=== PATIENT | female | born 1995 | race American Indian/Alaskan Native ===

== ENCOUNTER 2019-05-14 09:19 | Emergency (ER) | payer SELFPAY ==
[2019-05-14] MEDS ORDERED: ALBUTEROL 2.5 MG/3 ML NEBU IH ONE ×2 (09:38→11:49)
[2019-05-14] MEDS ORDERED: dexAMETHasone 4 MG/ML VIAL IM ONE (09:38)
[2019-05-14] MEDS ORDERED: IPRATROPIUM 0.02% NEBU 2.5 ML IH ONE ×2 (09:38→11:49)
--- NOTE | 2019-05-14 09:38 | Event Note ---
ED Screening Note ED Screening Note: presents with chest tightness and SOB began last night +cough no fever no sick contacts PMHx asthma, albuterol inhaler doesn't have her inhaler no allergies to meds non smoker This initial assessment/diagnostic orders/clinical plan/treatment(s) is/are subject to change based on patients health status, clinical progression and re- assessment by fellow clinical providers in the ED. Further treatment and workup at subsequent clinical providers discretion. Patient/guardian urged not to elope from the ED as their condition may be serious if not clinically assessed and managed. Initial orders include: neb tx and steroids
[2019-05-14] MEDS ORDERED: MAGNESIUM SULFATE 2 GM/50 ML BAG IV ONE (10:06)
[2019-05-14] MEDS ORDERED: SODIUM CHLORIDE 0.9% 1000 ML 1,000 ML IV ONE (10:06)
--- NOTE | 2019-05-14 10:13 | Emergency Department Report ---
ED Shortness of Breath HPI - General Chief Complaint: Dyspnea/Respdistress Stated Complaint: CHEST PAIN Time Seen by Provider: 05/14/19 09:35 Source: patient Mode of arrival: Ambulatory Limitations: No Limitations - History of Present Illness Initial Comments: 24-year-old -[place] female with a past medical history of asthma presents to the emergency room for shortness of breath and chest tightness times last night. Patient states that she's been out of her albuterol medication for a while since she has not had any recent asthma attacks. Patient reports chills and fever. Patient reports her last menstrual period was 05/08/2019. MD Complaint: shortness of breath, "asthma attack" -: Last night Improves With: nothing Worsens With: nothing Known History Of: asthma Associated Symptoms: fever, cough Treatments Prior to Arrival: none - Related Data Previous Rx's Medication Instructions Recorded Last Taken Type ALBUTEROL Inhaler (OR & NICU) 2 puff IH QID PRN #8.5 gram 05/14/19 Unknown Rx [ProAir HFA Inhaler] Azithromycin [Zithromax Z-FELIX] 250 mg PO QDAY #6 tablet 05/14/19 Unknown Rx Allergies Allergy/AdvReac Type Severity Reaction Status Date / Time No Known Allergies Allergy Verified 05/14/19 09:20 ED Review of Systems ROS: Stated complaint: CHEST PAIN Other details as noted in HPI Comment: All other systems reviewed and negative Respiratory: cough, shortness of breath, wheezing ED Past Medical Hx - Past Medical History Previous Medical History?: No - Surgical History Past Surgical History?: No - Social History Smoking Status: Never Smoker Substance Use Type: None - Medications Home Medications: Home Medications Medication Instructions Recorded Confirmed Last Taken Type ALBUTEROL Inhaler (OR & NICU) 2 puff IH QID PRN #8.5 gram 05/14/19 Unknown Rx [ProAir HFA Inhaler] Azithromycin [Zithromax Z-FELIX] 250 mg PO QDAY #6 tablet 05/14/19 Unknown Rx ED Physical Exam - General Limitations: No Limitations General appearance: alert - Head Head exam: Present: atraumatic, normocephalic - Eye Eye exam: Present: normal appearance - ENT ENT exam: Present: mucous membranes moist - Respiratory Respiratory exam: Present: wheezes, rhonchi, accessory muscle use, prolonged expiratory - Cardiovascular Cardiovascular Exam: Present: tachycardia - GI/Abdominal GI/Abdominal exam: Present: soft, normal bowel sounds - Extremities Exam Extremities exam: Present: normal inspection - Back Exam Back exam: Present: normal inspection - Neurological Exam Neurological exam: Present: alert, oriented X3 - Psychiatric Psychiatric exam: Present: normal affect, normal mood - Skin Skin exam: Present: warm, dry, intact, normal color. Absent: rash ED Course Vital Signs 05/14/19 05/14/19 09:36 10:29 Temperature 98.8 F Pulse Rate 101 H Pulse Rate [ 108 H Anterior Bilateral Throughout] Respiratory 16 Rate Respiratory 20 Rate [Anterior Bilateral Throughout] Blood Pressure 134/69 O2 Sat by Pulse 96 Oximetry ED Medical Decision Making - Radiology Data Radiology results: report reviewed Patient: ANGEL PERALTA MR#: [id number] : 1995 Acct:[id number] Age/Sex: 24 / F ADM Date: 05/14/19 Loc: ED Attending Dr: Ordering Physician: REID BELLA Date of Service: 05/14/19 Procedure(s): XR chest routine 2V Accession Number(s): [id number] cc: REID BELLA Fluoro Time In Minutes: CHEST 2 VIEWS INDICATION: sob. COMPARISON: None. FINDINGS: Support devices: None. Heart: Within normal limits. Pulmonary vasculature: Normal. Lungs/pleura: Irregular focal consolidation of the right upper lobe. The rest of the lungs are clear. No pleural effusion. No pneumothorax. Additional findings: None. IMPRESSION: Acute right upper lobe pneumonia. Signer Name: Nicol Brooks MD Signed: 05/14/2019 11:34 AM Workstation Name: [id number] Transcribed By: REF Dictated By: NICOL BROOKS MD Electronically Authenticated By: NICOL BROOKS MD Signed Date/Time: 05/14/19 1134 DD/ 1131 TD/TT: - Medical Decision Making 24-year-old -[place] female with a past medical history of asthma pres ents to the emergency room for shortness of breath and chest tightness times last night. Patient states that she's been out of her albuterol medication for a while since she has not had any recent asthma attacks. Patient reports chills and fever. Patient reports her last menstrual period was 05/08/2019. Orders have been placed for dual neb, dexamethasone 8 mg IM, magnesium 2 g IV, normal saline 1000 mL. Critical care attestation.: If time is entered above; I have spent that time in minutes in the direct care of this critically ill patient, excluding procedure time. ED Disposition Clinical Impression: Pneumonia Disposition: DC- TO HOME OR SELFCARE Is pt being admited?: No Does the pt Need Aspirin: No Condition: Stable Instructions: Bacterial Pneumonia (ED) Prescriptions: ALBUTEROL Inhaler (OR & NICU) [ProAir HFA Inhaler] 2 puff IH QID PRN #8.5 gram PRN Reason: Shortness Of Breath Azithromycin [Zithromax Z-FELIX] 250 mg PO QDAY #6 tablet Referrals: PRIMARY CARE, [Primary Care Provider] - 3-5 Days [facility] [Outside] - 3-5 Days [facility] [Outside] - 3-5 Days Forms: Work/School Release Form(ED)
[2019-05-14] MEDS ORDERED: dexAMETHasone 4 MG/ML VIAL IV ONE (10:49)
--- NOTE | 2019-05-14 11:38 | XRay Report ---
CHEST 2 VIEWS INDICATION: sob. COMPARISON: None. FINDINGS: Support devices: None. Heart: Within normal limits. Pulmonary vasculature: Normal. Lungs/pleura: Irregular focal consolidation of the right upper lobe. The rest of the lungs are clear. No pleural effusion. No pneumothorax. Additional findings: None. IMPRESSION: Acute right upper lobe pneumonia. Signer Name: Jalen Sorensen MD Signed: 05/14/2019 11:34 AM Workstation Name: [id number]
[2019-05-14] MEDS ORDERED: cefTRIAXone/NS 1 GM/50 ML 1 GM/50 ML BAG IV ONE (12:28)
[2019-05-14 13:24] VITALS: BP 127/64
== END 2019-05-14 13:21 | disposition home or self-care (01) ==
LOC: ED 09:19
DX: J18.9 Pneumonia, unspecified organism (principal)
CPT/HCPCS: 71046; 94640; 96365; 96367; 96375; 99283; J0696; J1100; J3475; J7030; 94644

== ENCOUNTER 2019-05-14 21:30 | Emergency (ER) | payer SELFPAY ==
[2019-05-14] MEDS ORDERED: IPRATROPIUM 0.02% NEBU 2.5 ML IH ONE (22:32)
[2019-05-14] MEDS ORDERED: ALBUTEROL 2.5 MG/3 ML NEBU IH ONE (22:32)
[2019-05-14] MEDS ORDERED: dexAMETHasone 20 MG/5 ML VIAL IM ONE (22:32)
--- NOTE | 2019-05-14 22:32 | Emergency Department Report ---
Blank Doc - Documentation Documentation: 24-year-old female that presents with wheezing and SOB. This initial assessment/diagnostic orders/clinical plan/treatment(s) is/are subject to change based on patient's health status, clinical progression and re- assessment by fellow clinical providers in the ED. Further treatment and workup at subsequent clinical providers discretion. Patient/guardians urged not to elope from the ED as their condition may be serious if not clinically assessed and managed. Initial orders include: 1- Patient sent to [facility] for further evaluation and treatment 2- breathing treatment/steroids
[2019-05-14] MEDS ORDERED: LIDOCAINE-MPF (1%) 10 MG/1 ML VIAL 5 ML INFILTRATI ONE (23:02)
[2019-05-14] MEDS ORDERED: IBUPROFEN 600 MG TAB PO ONE (23:02)
--- NOTE | 2019-05-14 23:56 | Emergency Department Report ---
- General Chief Complaint: Dyspnea/Respdistress Stated Complaint: FLU SX/DAMIEN Time Seen by Provider: 05/14/19 22:30 Source: patient Mode of arrival: Ambulatory Limitations: No Limitations - History of Present Illness Initial Comments: Patient is a 24-year-old -[place] female with no past medical history who presented to the ED with persistent worsening shortness of breath, dry cough, wheezing with nasal and sinus congestion for the last 3 days. Patient states that she was initially evaluated this same over 12 hours ago and diagnosed with pneumonia and was discharged home on albuterol and azithromycin, the medications which she purchased and started taking the antibiotic. Patient states that in the last 2 hours prior to arrival to the ED for shortness of breath got worse with persistent cough and chest wall pain. Patient denies fever, chills, sore throat, dizziness, syncope, headache, abdominal pain, dysuria, urinary frequency and urgency or change in vision and syncope. MD Complaint: cough, rhinorrhea, nasal congestion, sinus pain -: Sudden, days(s) (3) Severity: moderate Severity scale (0 -10): 6 Quality: aching Consistency: constant Improves With: nothing Worsens With: nothing Context: sick contacts Associated Symptoms: denies other symptoms, myalgias, headache, rhinorrhea, nasal congestion, cough, shortness of breath, ear pain. denies: fever, chills, diaphoresis, sore throat, stiff neck, chest pain, abdominal pain, nausea, vomiting, diarrhea, dysuria, rash, confusion, right sweats, epistaxis, hoarseness Treatments Prior to Arrival: antibiotics - Related Data Previous Rx's Medication Instructions Recorded Last Taken Type ALBUTEROL Inhaler (OR & NICU) 2 puff IH QID PRN #8.5 gram 05/14/19 Unknown Rx [ProAir HFA Inhaler] Azithromycin [Zithromax Z-FELIX] 250 mg PO QDAY #6 tablet 05/14/19 Unknown Rx Amoxicillin/Potassium Clav 1 each PO Q12H #20 tablet 05/15/19 Unknown Rx [Augmentin 875-125 Tablet] Benzonatate [Tessalon Perles] 100 mg PO Q8HR #30 capsule 05/15/19 Unknown Rx Ibuprofen [Motrin] 600 mg PO Q8H PRN #20 tablet 05/15/19 Unknown Rx methylPREDNISolone [Medrol 4MG 4 mg PO DAILY #21 tab.ds.pk 05/15/19 Unknown Rx DOSEPAK (21 tabs)] Allergies Allergy/AdvReac Type Severity Reaction Status Date / Time No Known Allergies Allergy Verified 05/14/19 09:20 ED Review of Systems ROS: Stated complaint: FLU SX/DAMIEN Other details as noted in HPI Constitutional: denies: chills, fever Eyes: denies: eye pain, eye discharge, vision change ENT: congestion. denies: ear pain, throat pain Respiratory: cough, shortness of breath, wheezing Cardiovascular: denies: chest pain, palpitations, dyspnea on exertion, syncope, paroxysmal nocturnal dyspnea Endocrine: no symptoms reported. denies: excessive sweating, flushing, intolerance to cold, increased hunger, increased thirst, unexplained weight loss Gastrointestinal: denies: abdominal pain, nausea, diarrhea Genitourinary: denies: urgency, dysuria, discharge Musculoskeletal: denies: back pain, joint swelling, arthralgia Skin: denies: rash, lesions Neurological: denies: headache, weakness, paresthesias Psychiatric: denies: anxiety, depression Hematological/Lymphatic: denies: easy bleeding, easy bruising ED Past Medical Hx - Past Medical History Hx Asthma: Yes - Surgical History Additional Surgical History: Tonsilectomy - Social History Smoking Status: Never Smoker Substance Use Type: None - Medications Home Medications: Home Medications Medication Instructions Recorded Confirmed Last Taken Type ALBUTEROL Inhaler (OR & NICU) 2 puff IH QID PRN #8.5 gram 05/14/19 Unknown Rx [ProAir HFA Inhaler] Azithromycin [Zithromax Z-FELIX] 250 mg PO QDAY #6 tablet 05/14/19 Unknown Rx Amoxicillin/Potassium Clav 1 each PO Q12H #20 tablet 05/15/19 Unknown Rx [Augmentin 875-125 Tablet] Benzonatate [Tessalon Perles] 100 mg PO Q8HR #30 capsule 05/15/19 Unknown Rx Ibuprofen [Motrin] 600 mg PO Q8H PRN #20 tablet 05/15/19 Unknown Rx methylPREDNISolone [Medrol 4MG 4 mg PO DAILY #21 tab.ds.pk 05/15/19 Unknown Rx DOSEPAK (21 tabs)] ED Physical Exam - General Limitations: No Limitations General appearance: alert, in no apparent distress - Head Head exam: Present: atraumatic, normocephalic, normal inspection - Eye Eye exam: Present: normal appearance, PERRL, EOMI Pupils: Present: normal accommodation - ENT ENT exam: Present: normal orophraynx, mucous membranes moist, TM's normal bilaterally, normal external ear exam, other (grossly congested nasal passages) - Neck Neck exam: Present: normal inspection, full ROM - Respiratory Respiratory exam: Present: normal lung sounds bilaterally, wheezes (diffuse coarse wheezes throughout). Absent: respiratory distress, rales, rhonchi, chest wall tenderness, accessory muscle use, decreased breath sounds, prolonged expiratory - Cardiovascular Cardiovascular Exam: Present: normal rhythm, tachycardia, normal heart sounds. Absent: systolic murmur, diastolic murmur, rubs, gallop - GI/Abdominal GI/Abdominal exam: Present: soft, normal bowel sounds. Absent: distended, tenderness, guarding, hyperactive bowel sounds, hypoactive bowel sounds, organomegaly - Extremities Exam Extremities exam: Present: normal inspection, full ROM, normal capillary refill - Back Exam Back exam: Present: normal inspection, full ROM. Absent: tenderness, CVA tenderness (R), CVA tenderness (L), muscle spasm, paraspinal tenderness, vertebral tenderness - Neurological Exam Neurological exam: Present: alert, oriented X3, CN II-XII intact, normal gait, reflexes normal - Psychiatric Psychiatric exam: Present: normal affect, normal mood - Skin Skin exam: Present: warm, dry, intact, normal color. Absent: rash ED Course Vital Signs 05/14/19 21:46 Temperature 98.1 F Pulse Rate 101 H Respiratory 20 Rate Blood Pressure 115/72 O2 Sat by Pulse 94 Oximetry - Reevaluation(s) Reevaluation #1: 05/15/19 01:26 This is a 24-year-old female who presented to the ED with worsening shortness of breath, dry cough for the last 2 hours. Patient was diagnosed initially with pneumonia after presenting to this ED over 12 hours ago. Patient states that she was able to take the initial oral antibiotic azithromycin and has been using albuterol inhaler with no relief. Given the ED, patient is alert and oriented 3 and is not in distress. Patient received DuoNeb treatment in the ED, Decadron 10 mg intramuscular injection and was also given Rocephin 1 g intramuscular injection times one. On reevaluation, patient's wheezing significantly improved, and patient will discharged home additionally with a Medrol dose pack, Tessalon Perles and the antibiotic was changed to Augmentin 875-125 mg every 12 hours. Patient is advised to return to the ED immediately if symptoms get worse, otherwise follow-up with her primary care physician and 7-10 days for reevaluation. ED Medical Decision Making - Medical Decision Making This is a 24-year-old female who presented to the ED with worsening shortness of breath, dry cough for the last 2 hours. Patient was diagnosed initially with pneumonia after presenting to this ED over 12 hours ago. Patient states that she was able to take the initial oral antibiotic azithromycin and has been using albuterol inhaler with no relief. Given the ED, patient is alert and oriented 3 and is not in distress. Patient received DuoNeb treatment in the ED, Decadron 10 mg intramuscular injection and was also given Rocephin 1 g intramuscular injection times one. Chest x-ray performed about 12 hours ago showed right upper lobe pneumonia. On reevaluation, patient's wheezing significantly improved, and patient will discharged home additionally with a Medrol dose pack, Tessalon Perles and the antibiotic was changed to Augmentin 875-125 mg every 12 hours. Patient is advised to return to the ED immediately if symptoms get worse, otherwise follow-up with her primary care physician and 7-10 days for reevaluation - Differential Diagnosis pneumonia; bronchitis, URI Critical care attestation.: If time is entered above; I have spent that time in minutes in the direct care of this critically ill patient, excluding procedure time. ED Disposition Clinical Impression: Acute upper respiratory infection Right upper lobe pneumonia Qualifiers: Pneumonia type: due to unspecified organism Qualified Code(s): J18.1 - Lobar pneumonia, unspecified organism Disposition: DC- TO HOME OR SELFCARE Is pt being admited?: No Does the pt Need Aspirin: No Condition: Stable Instructions: Bacterial Pneumonia (ED), Community-acquired Pneumonia (ED) Additional Instructions: Continue taking her previously prescribed antibiotics. In addition to the previously prescribed medications, new set of medications have been added to your current medications you have at home. Take these medications to completion, follow-up with [facility] clinic in 7-10 days for reevaluation. Return to the ED immediately if symptoms get worse. Prescriptions: Amoxicillin/Potassium Clav [Augmentin 875-125 Tablet] 1 each PO Q12H #20 tablet methylPREDNISolone [Medrol 4MG DOSEPAK (21 tabs)] 4 mg PO DAILY #21 tab.ds.pk Ibuprofen [Motrin] 600 mg PO Q8H PRN #20 tablet PRN Reason: Pain Benzonatate [Tessalon Perles] 100 mg PO Q8HR #30 capsule Referrals: PRIMARY CARE,MD [Primary Care Provider] - 3-5 Days Forms: Work/School Release Form(ED) Time of Disposition: 00:00 Print Language: ROMANSH
[2019-05-15 00:15] VITALS: BP 148/67
== END 2019-05-15 00:14 | disposition home or self-care (01) ==
LOC: ED 21:30
DX: J18.1 Lobar pneumonia, unspecified organism (principal); J06.9 Acute upper respiratory infection, unspecified; J45.909 Unspecified asthma, uncomplicated; Z90.89 Acquired absence of other organs; Z79.899 Other long term (current) drug therapy
CPT/HCPCS: 94640; 96372; 99283; J0696; J1100

== ENCOUNTER 2019-05-15 12:57 | Emergency (ER) | payer SELFPAY ==
[2019-05-15 13:06] VITALS: BP 122/67
--- NOTE | 2019-05-15 13:14 | Emergency Department Report ---
Chief Complaint: Upper Respiratory Infection Stated Complaint: RESPIRATORY ISSUES Time Seen by Provider: 05/15/19 13:03 - HPI History of Present Illness: This is a 24 y.o. F. that presents to the ER requesting a refill of nebulizer solution and machine. Past medical history of asthma. Patient states she was diagnosed with pneumonia yesterday and started on antibiotics and inhaler. She is taking medication with no improvement of SOB. Patient states she feels short of breath with exertion. She is using inhaler more than usual. Currently shortness of breath resolved. Denies chest pain, fever, chills, weakness, body aches, or wheezing. - Exam Vital Signs: Vital Signs 05/15/19 13:03 Temperature 97.4 F L Pulse Rate 80 Respiratory 18 Rate Blood Pressure 122/67 O2 Sat by Pulse 96 Oximetry MSE screening note: Focused history and physical exam performed. Due to findings the following was ordered: ED Medical Decision Making - Medical Decision Making Patient is stable and was examined by me. Vitals are stable and patient in no acute distress. Patient is asymptomatic. Start nebulizer and albuterol neb solution. Patient was instructed to Follow-up with a primary care doctor in 3-5 days or if symptoms worsen and continue return to emergency room as soon as possible. At time of discharge, the patient does not seem toxic or ill in appearance. Patient agrees to discharge treatment plan of care. No further questions noted by the patient. ED Disposition for MSE Clinical Impression: Medication refill Disposition: DC-01 TO HOME OR SELFCARE Is pt being admited?: No Condition: Stable Instructions: Asthma (ED) Additional Instructions: Follow up with a primary care doctor from the referrals list below. Prescriptions: Nebulizer [Sootheneb Mesh Nebulizer] 1 each QID PRN #1 each PRN Reason: Shortness Of Breath Nebulizer Accessories [Sootheneb [id number] Adult Mask] 1 each PRN #1 each Referrals: [facility] [Outside] - 3-5 Days [facility] [Outside] - 3-5 Days [facility] [Outside] - 3-5 Days Forms: Work/School Release Form(ED) Time of Disposition: 13:31
== END 2019-05-15 14:09 | disposition home or self-care (01) ==
LOC: ED 12:57
DX: J45.909 Unspecified asthma, uncomplicated (principal); Z76.0 Encounter for issue of repeat prescription

== ENCOUNTER 2020-08-30 00:30 | Emergency (ER) | payer SELFPAY ==
[2020-08-30] MEDS ORDERED: LET TOPICAL (LIDOCAINE/EPINEPHRINE/TETRACAINE) 3 ML TP ONE (01:15)
[2020-08-30] MEDS ORDERED: IBUPROFEN 600 MG TAB PO ONE (01:15)
[2020-08-30] MEDS ORDERED: NEOMY 3.5 MG/BACIT 400 UNITS/POLY B 5000 UNITS/GM OINT PACKET TP ONE (01:16)
--- NOTE | 2020-08-30 03:03 | Emergency Department Report ---
ED Upper Extremity Inj HPI - General Chief Complaint: Extremity Injury, Upper Stated Complaint: LEFT FINGER INJURY Source: patient Mode of arrival: Ambulatory Limitations: No Limitations - History of Present Illness Initial Comments: Patient is a 25-year-old -[place] female with a history of asthma who presents to the ED with complaint of acute onset persistent painful swollen bleeding distal left middle finger open wound due to nail avulsion after her left middle finger acrylic nails were caught up on her piece of cloth and ripped apart about 7 hours ago. Patient states that the pain and the swelling of worsened in the last 4 hours. Patient denies numbness and tingling or weakness of left hand or left middle finger, nausea, vomiting, fall, dizziness, syncope, heavy lifting or change in vision. MD Complaint: Injury to:: left (distal left middle finger pain with nail avulsion), finger (with nail avulsion) -: Sudden, hour(s) (7) Other Extremity Injury: Fingers: Left (distal left middle finger ininjury with nail avulsion) Other Injuries: none Handedness: right Place: home Severity scale (0 -10): 8 Improves With: none Worsens With: movement of extremity Context: direct blow, injury Associated Symptoms: denies other symptoms. denies: weakness, numbness, neck pain, suspects foreign body, nausea/vomiting - Related Data Previous Rx's Medication Instructions Recorded Last Taken Type Albuterol Mdi (or & Nicu Only) 2 puff IH QID PRN #8.5 gram 05/14/19 Unknown Rx [ProAir HFA Inhaler] Azithromycin [Zithromax Z-FELIX] 250 mg PO QDAY #6 tablet 05/14/19 Unknown Rx ALBUTEROL NEB's [Proventil 0.083% 2.5 mg IH TID PRN #1 box 05/15/19 Unknown Rx NEBS] Amoxicillin/Potassium Clav 1 each PO Q12H #20 tablet 05/15/19 Unknown Rx [Augmentin 875-125 Tablet] Benzonatate [Tessalon Perles] 100 mg PO Q8HR #30 capsule 05/15/19 Unknown Rx Nebulizer Accessories [Sootheneb 1 each MC PRN #1 each 05/15/19 Unknown Rx [id number] Adult Mask] Nebulizer [Sootheneb Mesh 1 each MC QID PRN #1 each 05/15/19 Unknown Rx Nebulizer] methylPREDNISolone [Medrol 4MG 4 mg PO DAILY #21 tab.ds.pk 05/15/19 Unknown Rx DOSEPAK (21 tabs)] Ibuprofen [Motrin 600 MG tab] 600 mg PO Q8H PRN #24 tablet 08/30/20 Unknown Rx Sulfamethoxazole/Trimethoprim 1 each PO Q12H #20 tablet 08/30/20 Unknown Rx [Bactrim DS TAB] Allergies Allergy/AdvReac Type Severity Reaction Status Date / Time No Known Allergies Allergy Verified 05/14/19 09:20 ED Review of Systems ROS: Stated complaint: LEFT FINGER INJURY Other details as noted in HPI Constitutional: denies: chills, fever Eyes: denies: eye pain, eye discharge, vision change ENT: denies: ear pain, throat pain Respiratory: denies: cough, shortness of breath, wheezing Cardiovascular: denies: chest pain, palpitations Endocrine: no symptoms reported Gastrointestinal: denies: abdominal pain, nausea, diarrhea Genitourinary: denies: urgency, dysuria, discharge Musculoskeletal: arthralgia (distal left middle finger pain, nail avulsion). denies: back pain, joint swelling Skin: denies: rash, lesions Neurological: denies: headache, weakness, paresthesias Psychiatric: denies: anxiety, depression Hematological/Lymphatic: denies: easy bleeding, easy bruising ED Past Medical Hx - Past Medical History Hx Asthma: Yes - Surgical History Additional Surgical History: Tonsilectomy - Social History Smoking Status: Never Smoker Substance Use Type: None - Medications Home Medications: Home Medications Medication Instructions Recorded Confirmed Last Taken Type Albuterol Mdi (or & Nicu Only) 2 puff IH QID PRN #8.5 gram 05/14/19 Unknown Rx [ProAir HFA Inhaler] Azithromycin [Zithromax Z-FELIX] 250 mg PO QDAY #6 tablet 05/14/19 Unknown Rx ALBUTEROL NEB's [Proventil 0.083% 2.5 mg IH TID PRN #1 box 05/15/19 Unknown Rx NEBS] Amoxicillin/Potassium Clav 1 each PO Q12H #20 tablet 05/15/19 Unknown Rx [Augmentin 875-125 Tablet] Benzonatate [Tessalon Perles] 100 mg PO Q8HR #30 capsule 05/15/19 Unknown Rx Nebulizer Accessories [Sootheneb 1 each MC PRN #1 each 05/15/19 Unknown Rx [id number] Adult Mask] Nebulizer [Sootheneb Mesh 1 each MC QID PRN #1 each 05/15/19 Unknown Rx Nebulizer] methylPREDNISolone [Medrol 4MG 4 mg PO DAILY #21 tab.ds.pk 05/15/19 Unknown Rx DOSEPAK (21 tabs)] Ibuprofen [Motrin 600 MG tab] 600 mg PO Q8H PRN #24 tablet 08/30/20 Unknown Rx Sulfamethoxazole/Trimethoprim 1 each PO Q12H #20 tablet 08/30/20 Unknown Rx [Bactrim DS TAB] ED Physical Exam - General Limitations: No Limitations General appearance: alert, in no apparent distress - Head Head exam: Present: atraumatic, normocephalic, normal inspection - Eye Eye exam: Present: normal appearance, PERRL, EOMI Pupils: Present: normal accommodation - ENT ENT exam: Present: normal exam, normal orophraynx, mucous membranes moist, TM's normal bilaterally, normal external ear exam - Neck Neck exam: Present: normal inspection, full ROM - Respiratory Respiratory exam: Present: normal lung sounds bilaterally. Absent: respiratory distress, wheezes, rales, rhonchi, chest wall tenderness, accessory muscle use, prolonged expiratory - Cardiovascular Cardiovascular Exam: Present: regular rate, normal rhythm, normal heart sounds. Absent: systolic murmur, diastolic murmur, rubs, gallop - GI/Abdominal GI/Abdominal exam: Present: soft, normal bowel sounds. Absent: tenderness, guarding, rebound, hyperactive bowel sounds, hypoactive bowel sounds, organomegaly - Extremities Exam Extremities exam: Present: normal inspection, full ROM, tenderness (distal left middle finger tenderness with nail avulsion), normal capillary refill - Back Exam Back exam: Present: normal inspection, full ROM. Absent: tenderness, CVA tenderness (R), CVA tenderness (L), muscle spasm, vertebral tenderness - Neurological Exam Neurological exam: Present: alert, oriented X3, CN II-XII intact, normal gait, reflexes normal - Psychiatric Psychiatric exam: Present: normal affect, normal mood - Skin Skin exam: Present: warm, dry, intact, normal color, other (Bleeding ope wound on distal left middle finger with nail avulsion). Absent: rash - Procedure Description Procedures done: Distal left middle finger nail avulsion with fingernail removal. -Distal left middle finger was cleaned with normal saline and Betadine after application of local anesthetic let gel solution. -The nail was then trimmed with a pair of scissors to the base removing the entire acrylic nail and the natural nail successfully. The wound was then rinsed with normal saline and Neosporin ointment applied to the wound. Patient tolerated procedure well. The wound was then dressed appropriately and the patient was discharged home on pain medication antibiotics. ED Medical Decision Making - Medical Decision Making This is a 25-year-old -[place] female with a history of asthma who presents to the ED with complaint of acute onset persistent painful swollen bleeding distal left middle finger open wound due to nail avulsion after her left middle finger acrylic nails were caught up on her piece of cloth and ripped apart about 7 hours ago. Patient states that the pain and the swelling of worsened in the last 4 hours. In the ED, patient is alert and oriented x3 and is not in any distress. Patient was treated for pain in the ED and also the distal left middle finger nail avulsion wound was cleaned with normal saline and Betadine and local anesthetic let gel solution applied to the wound. When anesthesia was fully achieved, the partially avulsed nail was removed succes sfully followed by cleaning with normal saline and application of Neosporin. The wound was then dressed appropriately and the patient tolerated procedure well. Patient was therefore discharged home on pain medication and antibiotics and was advised to follow-up with her primary care physician in 5 to 7 days for reevaluation. Patient was advised to return to the ED immediately if symptoms get worse. - Differential Diagnosis Finger contusion; finger nail avulsion; finger sprain; laceration Critical care attestation.: If time is entered above; I have spent that time in minutes in the direct care of this critically ill patient, excluding procedure time. ED Disposition Clinical Impression: Contusion of left middle finger with damage to nail Qualifiers: Encounter type: initial encounter Qualified Code(s): S60.132A - Contusion of left middle finger with damage to nail, initial encounter Nail avulsion, finger Qualifiers: Encounter type: initial encounter Qualified Code(s): S61.309A - Unspecified open wound of unspecified finger with damage to nail, initial encounter Disposition: DC-01 TO HOME OR SELFCARE Is pt being admited?: No Does the pt Need Aspirin: No Condition: Stable Instructions: Contusion, [id number], Fingernail or Toenail Removal, Adult, Care After, Nail Bed Injury, [id number] Additional Instructions: Take medication with food, drink plenty of fluids and follow-up with your primary care physician in 7 to 10 days for reevaluation. Return to the ED immediately if symptoms get worse. Prescriptions: Sulfamethoxazole/Trimethoprim [Bactrim DS TAB] 1 each PO Q12H #20 tablet Ibuprofen [Motrin 600 MG tab] 600 mg PO Q8H PRN #24 tablet PRN Reason: Pain Referrals: [facility] [Provider Group] - 7-10 days Time of Disposition: 03:17 Print Language: CZECH
[2020-08-30 03:29] VITALS: BP 119/75
== END 2020-08-30 03:39 | disposition home or self-care (01) ==
LOC: ED 00:30
DX: S61.303A Unspecified open wound of left middle finger with damage to nail, initial encounter (principal); S60.132A Contusion of left middle finger with damage to nail, initial encounter; J45.909 Unspecified asthma, uncomplicated; Z79.899 Other long term (current) drug therapy; Z90.49 Acquired absence of other specified parts of digestive tract; X58.XXXA Exposure to other specified factors, initial encounter; Y93.89 Activity, other specified; Y92.009 Unspecified place in unspecified non-institutional (private) residence as the place of occurrence of the external cause; Y99.8 Other external cause status
CPT/HCPCS: 11730; 99282; A6250